=== PATIENT | male | born 1955 | race African-American/Black ===

== ENCOUNTER 2016-11-27 02:23 | Emergency (ER) | payer MEDICAID ==
[~2016-11-27] VITALS: Ht 182.9 cm; Wt 68.0 kg
[2016-11-27 12:28] VITALS: BP 148/92
== END 2016-11-27 16:57 | disposition left against medical advice (07) ==
LOC: ER 02:53
DX: M17.0 Bilateral primary osteoarthritis of knee (principal)
CPT/HCPCS: 99283

== ENCOUNTER 2020-03-19 10:33 | Inpatient (IN) | payer MEDICARE, MEDICAID ==
[~2020-03-19] VITALS: Ht 172.7 cm; Wt 48.5 kg
[2020-03-19 12:07] LABS: BASOPHILS % 0.1 % (0.0-2.0); HEMOGLOBIN. 13.8 g/dL (14.0-18.0); LYMPHOCYTES % 10.2 % (20.0-50.0); MEAN CORPUSCULAR HEMOGLOBIN 30.5 pg (28.0-32.0); MEAN CORPUSCULAR VOLUME 92.8 fL (80.0-94.0); MEAN PLATELET VOLUME 9.5 fl (7.4-10.4); MONOCYTES % 5.1 % (2.0-8.0); NEUTROPHILS % 84.6 % (40.0-76.0); PLATELET 226 x1000/uL (130-400); RED BLOOD CELL COUNT 4.53 mill/uL (4.7-6.1); RED CELL DISTRIBUTION WIDTH 17.3 % (11.6-14.6)
[2020-03-19 12:13] LABS: CHLORIDE 104 mEq/L (98-107)
[2020-03-19 12:20] LABS: ETHANOL BLOOD < 10 mg/dL
[2020-03-19] MEDS ORDERED: AMPICILLIN SOD/SULBACTAM NA 3 G in SODIUM CHLORIDE 0.9% 100 ML IV SCH (14:30)
[2020-03-19] MEDS ORDERED: POTASSIUM CHLORIDE 20MEQ TABLET SR PO ONE (15:00)
[2020-03-19 16:40] LABS: CLARITY URINE CLOUDY (CLEAR); COLOR URINE DARK YELLOW (YELLOW); KETONES URINE NEGATIVE (NEGATIVE); LEUKOCYTE ESTERASE URINE 3+ (NEGATIVE); NITRITE URINE NEGATIVE (NEGATIVE); OCCULT BLOOD URINE 1+ (NEGATIVE); PH URINE 5.5 (4.5-8.0); PROTEIN URINE 2+ (NEGATIVE); SPECIFIC GRAVITY URINE 1.021 (1.005-1.030); UROBILINOGEN URINE >8.0 E.U./dL (0.2-1.0)
[2020-03-19 16:54] LABS: *AMPHETAMINES SCREEN URINE NEGATIVE (NEGATIVE)
[2020-03-19 16:55] LABS: *BARBITURATES SCREEN URINE NEGATIVE (NEGATIVE); *BENZODIAZEPINES SCREEN URINE NEGATIVE (NEGATIVE); *COCAINE SCREEN URINE PRESUMTIVE POSITIVE (NEGATIVE); METHADONE URINE SCREEN NEGATIVE (NEGATIVE); OPIATES URINE SCREEN NEGATIVE (NEGATIVE); PHENCYCLIDINE URINE SCREEN NEGATIVE (NEGATIVE)
[2020-03-19 16:56] LABS: CANNABINOID URINE SCREEN PRESUMTIVE POSITIVE (NEGATIVE)
[2020-03-19] MEDS ORDERED: CLONIDINE 0.1MG TABLET PO PRN (19:15)
[2020-03-19] MEDS ORDERED: GUAIFENESIN 200MG/10ML SUGAR FREE UDC PO PRN (19:15)
[2020-03-19] MEDS ORDERED: ONDANSETRON HCL 4MG/2ML INJ IV PRN (19:15)
[2020-03-19] MEDS ORDERED: DOCUSATE SODIUM 100MG CAPSULE PO PRN (19:15)
[2020-03-19] MEDS ORDERED: HYDROCODONE/ACETAMINOPHEN 5/325MG TABLET PO PRN (19:15)
[2020-03-19] MEDS ORDERED: MAGNESIUM/ALUMINUM HYDROXIDE/SIMETHICONE 30ML UDC PO PRN (19:15)
[2020-03-19] MEDS ORDERED: PIPERACILLIN/TAZ 3.375G PREMIX 50 ML IV SCH (20:00)
[2020-03-19] MEDS ORDERED: KCL 10MEQ/50ML PREMIX 50 ML IV ONE (20:00)
[2020-03-19] MEDS ORDERED: VANCOMYCIN 1250MG in DEXTROSE 5% WATER 250ML IV SCH (21:00)
[2020-03-19 22:00] VITALS: BP 132/76
[2020-03-19] MEDS ORDERED: DEXTROSE 50% WATER 50ML SYRINGE IV PRN (22:30)
[2020-03-19] MEDS: SODIUM CHLORIDE 0.45% 1,000 ML IV SCH (22:36)
[2020-03-19] MEDS: ENOXAPARIN 40MG/0.4ML SYR SUBCUT SCH (22:47)
[2020-03-19 23:12] VITALS: BP 132/76
[2020-03-19] MEDS: PIPERACILLIN/TAZOBACTAM 3.375 G in DEXT 5% WATER 100 ML IV SCH (23:49)
[2020-03-20] VITALS: BP 115/78
[2020-03-20] MEDS: BLOOD SUGAR DIAGNOSTIC STRIP TEST SCH ×4 (07:15→21:00)
[2020-03-20] MEDS: INSULIN LISPRO 100 UNITS/ML SUBCUT SCH ×4 (07:50→21:00)
[2020-03-20 08:00] VITALS: BP 120/79
[2020-03-20] MEDS: SODIUM CHLORIDE 0.45% 1,000 ML IV SCH (08:35)
[2020-03-20] MEDS: VANCOMYCIN 1 G PREMIX 200 ML IV SCH ×2 (09:00→12:27)
[2020-03-20] MEDS: AMLODIPINE 10MG TABLET PO SCH (09:52)
[2020-03-20] MEDS: PIPERACILLIN/TAZOBACTAM 3.375 G in DEXT 5% WATER 100 ML IV SCH ×2 (10:00→17:27)
[2020-03-20 12:00] VITALS: BP 112/57
[2020-03-20 16:00] VITALS: BP 112/65
[2020-03-20 20:00] VITALS: BP 145/73
[2020-03-20] MEDS: VANCOMYCIN 750 MG PREMIX 150 ML IV SCH (20:58)
[2020-03-20] MEDS: ENOXAPARIN 40MG/0.4ML SYR SUBCUT SCH (20:58)
[2020-03-21] VITALS: BP 115/49
[2020-03-21] MEDS: PIPERACILLIN/TAZOBACTAM 3.375 G in DEXT 5% WATER 100 ML IV SCH ×2 (00:26→08:26)
[2020-03-21] MEDS: SODIUM CHLORIDE 0.45% 1,000 ML IV SCH ×2 (00:27→11:15)
[2020-03-21 04:00] VITALS: BP 125/72
[2020-03-21] MEDS: INSULIN LISPRO 100 UNITS/ML SUBCUT SCH ×4 (07:43→20:03)
[2020-03-21] MEDS: BLOOD SUGAR DIAGNOSTIC STRIP TEST SCH ×4 (07:43→20:03)
[2020-03-21 07:45] VITALS: BP 152/90
[2020-03-21] MEDS: AMLODIPINE 10MG TABLET PO SCH (08:27)
[2020-03-21] MEDS: VANCOMYCIN 1 G PREMIX 200 ML IV SCH (09:00)
[2020-03-21] MEDS: VANCOMYCIN 750 MG PREMIX 150 ML IV SCH (09:55)
[2020-03-21 11:13] VITALS: BP 123/58
[2020-03-21 15:11] VITALS: BP 118/62
[2020-03-21] MEDS ORDERED: CEFTRIAXONE 1 G PREMIX 50 ML IV SCH (15:45)
[2020-03-21] MEDS: CEFTRIAXONE 1,000 MG in DEXTROSE 5% WATER 50 ML IV SCH (17:39)
[2020-03-21] MEDS: ENOXAPARIN 40MG/0.4ML SYR SUBCUT SCH (19:57)
[2020-03-21 20:00] VITALS: BP 111/65
[2020-03-22] VITALS: BP 114/77
[2020-03-22 04:00] VITALS: BP 114/96
[2020-03-22] MEDS: SODIUM CHLORIDE 0.45% 1,000 ML IV SCH ×2 (05:25→15:06)
[2020-03-22] MEDS: BLOOD SUGAR DIAGNOSTIC STRIP TEST SCH ×4 (07:57→20:27)
[2020-03-22 08:01] VITALS: BP 132/66
[2020-03-22] MEDS: INSULIN LISPRO 100 UNITS/ML SUBCUT SCH ×4 (08:24→20:32)
[2020-03-22] MEDS: AMLODIPINE 10MG TABLET PO SCH (08:26)
[2020-03-22 11:52] VITALS: BP 135/70
[2020-03-22] MEDS: ENOXAPARIN 40MG/0.4ML SYR SUBCUT SCH (16:00)
[2020-03-22 16:25] VITALS: BP 123/70
[2020-03-22] MEDS: CEFTRIAXONE 1,000 MG in DEXTROSE 5% WATER 50 ML IV SCH (17:45)
[2020-03-22 20:00] VITALS: BP 138/86
[2020-03-23] VITALS (7 sets, daily range): BP systolic 116–142; BP diastolic 65–99
[2020-03-23] MEDS: SODIUM CHLORIDE 0.45% 1,000 ML IV SCH ×2 (03:15→16:00)
[2020-03-23] MEDS: BLOOD SUGAR DIAGNOSTIC STRIP TEST SCH ×2 (06:52→12:20)
[2020-03-23] MEDS: INSULIN LISPRO 100 UNITS/ML SUBCUT SCH ×2 (07:50→12:50)
[2020-03-23] MEDS: ENOXAPARIN 40MG/0.4ML SYR SUBCUT SCH (09:00)
[2020-03-23] MEDS: AMLODIPINE 10MG TABLET PO SCH (09:00)
[2020-03-24] MEDS ORDERED: ENOXAPARIN 30MG/0.3ML SYR SUBCUT SCH (09:00)
== END 2020-03-23 20:20 | DRG 720 ==
LOC: ER 10:33 → 6WST 18:48 → EDBEDREQ 18:56 → EDBEDREQSVC 18:56 → ENRESERV 21:08
PROVIDERS: ADMIT Hospitalist; ATTEND Hospitalist
DX: A41.51 Sepsis due to Escherichia coli [E. coli] (principal); N39.0 Urinary tract infection, site not specified; E43 Unspecified severe protein-calorie malnutrition; L89.159 Pressure ulcer of sacral region, unspecified stage; I10 Essential (primary) hypertension; R74.01 Elevation of levels of liver transaminase levels; L89.319 Pressure ulcer of right buttock, unspecified stage; L89.329 Pressure ulcer of left buttock, unspecified stage; L89.213 Pressure ulcer of right hip, stage 3; Z20.828 Contact with and (suspected) exposure to other viral communicable diseases; L89.220 Pressure ulcer of left hip, unstageable; E11.51 Type 2 diabetes mellitus with diabetic peripheral angiopathy without gangrene; Z89.612 Acquired absence of left leg above knee; Z59.0 Homelessness; Z99.3 Dependence on wheelchair; Z68.1 Body mass index [BMI] 19.9 or less, adult; Z91.19 Patient's noncompliance with other medical treatment and regimen; F19.10 Other psychoactive substance abuse, uncomplicated
CPT/HCPCS: 36415; 71045; 80053; 80305; 80320; 81003; 82962; 83605; 85025; 87077; 87186; 87426; 93005; 93970; 96365; 99285; J0295; J0696; J1650; J1815; J2543; J3370; J3480; J7050; J7060; G0480

== ENCOUNTER 2021-07-18 10:30 | Inpatient (IN) | payer MEDICARE, MEDICAID ==
[~2021-07-18] VITALS: Ht 165.1 cm; Wt 62.6 kg
[~2021-07-18 10:30] MED LIST: ABAC1TAB14 PO
[2021-07-18 12:36] LABS: HEMATOCRIT. 39.4 % (42.0-52.0); HEMOGLOBIN. 13.2 g/dL (14.0-18.0); MEAN CORPUSCULAR HEMOGLOBIN 29.3 pg (28.0-32.0); MEAN CORPUSCULAR VOLUME 87.3 fL (80.0-94.0); MEAN PLATELET VOLUME 8.6 fl (7.4-10.4); PLATELET 238 x1000/uL (130-400); RED BLOOD CELL COUNT 4.52 mill/uL (4.7-6.1); RED CELL DISTRIBUTION WIDTH 16.9 % (11.6-14.6)
[2021-07-18] MEDS ORDERED: VANCOMYCIN 1G PREMIX 200 ML IV ONE (12:45)
[2021-07-18] MEDS ORDERED: PIPERACILLIN/TAZ 3.375G PREMIX 50 ML IV ONE (12:45)
[2021-07-18] MEDS ORDERED: SODIUM CHLORIDE 0.9% 1,000 ML IV ONE (12:45)
[2021-07-18 12:47] LABS: CHLORIDE 108 mEq/L (98-107)
[2021-07-18 12:57] LABS: ETHANOL BLOOD < 10 mg/dL
[2021-07-18 13:22] LABS: PLATELET ESTIMATE NORMAL
[2021-07-18] MEDS ORDERED: SODIUM CHLORIDE 0.9% 1000ML BAG (SEPSIS BOLUS) IV ONE (15:30)
[2021-07-18] MEDS ORDERED: NITROGLYCERIN 0.4MG TABLET SL SL PRN (18:15)
[2021-07-18] MEDS ORDERED: DEXTROSE 50% WATER 50ML SYRINGE IV PRN (18:15)
[2021-07-18] MEDS ORDERED: ONDANSETRON HCL 4MG/2ML INJ IV PRN (18:15)
[2021-07-18] MEDS ORDERED: KETOROLAC 15MG/ML VIAL IV PRN (18:15)
[2021-07-18] MEDS ORDERED: MAGNESIUM/ALUMINUM HYDROXIDE/SIMETHICONE 30ML UDC PO PRN (18:15)
[2021-07-18] MEDS ORDERED: GUAIFENESIN 200MG/10ML SUGAR FREE UDC PO PRN (18:15)
[2021-07-18] MEDS ORDERED: DOCUSATE SODIUM 100MG CAPSULE PO PRN (18:15)
[2021-07-18] MEDS: SODIUM CHLORIDE 0.9% 1,000 ML IV SCH (18:15)
[2021-07-18] MEDS ORDERED: IPRATROPIUM/ALBUTEROL 0.5-3(2.5)MG/3ML NEB NEB PRN (18:15)
[2021-07-18] MEDS ORDERED: CLONIDINE 0.1MG TABLET PO PRN (18:15)
[2021-07-18] MEDS ORDERED: PIPERACILLIN/TAZ 3.375G PREMIX 50 ML IV SCH (18:15)
[2021-07-18] MEDS ORDERED: ACETAMINOPHEN 325MG TABLET PO PRN (18:15)
[2021-07-18 19:25] VITALS: BP 117/60
[2021-07-18 19:26] LABS: T4 FREE 1.46 ng/dL (0.76-1.46)
[2021-07-18 20:00] VITALS: BP 97/65
[2021-07-18] MEDS ORDERED: NA PHOS,M-B/NA PHOS,DI-BA ENEMA 118ML PR NR (20:45)
[2021-07-18] MEDS ORDERED: ZOLPIDEM TARTRATE 5MG TABLET PO PRN (21:00)
[2021-07-18] MEDS: INSULIN LISPRO 100 UNITS/ML SUBCUT SCH (21:00)
[2021-07-18] MEDS ORDERED: ENOXAPARIN 40MG/0.4ML SYR SUBCUT SCH (21:00)
[2021-07-18] MEDS: BLOOD SUGAR DIAGNOSTIC STRIP TEST SCH (21:00)
[2021-07-18] MEDS ORDERED: VANCOMYCIN 1GM PMX (XELLIA) 200 ML IV SCH (23:00)
[2021-07-18] MEDS: ASCORBIC ACID 500 MG TABLET PO SCH (23:04)
[2021-07-18] MEDS: FAMOTIDINE 20MG TABLET PO SCH (23:04)
[2021-07-19] MEDS: ACETAMINOPHEN 325MG TABLET PO PRN ×2 (03:20→17:39)
[2021-07-19] MEDS: LACTULOSE 20G/30ML UDC PO SCH ×4 (03:20→17:21)
[2021-07-19 04:00] VITALS: BP 121/85
[2021-07-19] MEDS: SODIUM CHLORIDE 0.9% 1,000 ML IV SCH ×2 (04:15→16:21)
[2021-07-19] MEDS: PIPERACILLIN/TAZOBACTAM 3.375G in DEXT 5% WATER 50ML IV SCH ×4 (04:37→22:25)
[2021-07-19 06:57] LABS: CHLORIDE 111 mEq/L (98-107)
[2021-07-19 06:59] LABS: HEMATOCRIT. 35.9 % (42.0-52.0); HEMOGLOBIN. 12.2 g/dL (14.0-18.0); MEAN CORPUSCULAR HEMOGLOBIN 29.6 pg (28.0-32.0); MEAN CORPUSCULAR VOLUME 87.2 fL (80.0-94.0); MEAN PLATELET VOLUME 9.1 fl (7.4-10.4); PLATELET 228 x1000/uL (130-400); RED BLOOD CELL COUNT 4.12 mill/uL (4.7-6.1)
[2021-07-19 07:00] LABS: CLARITY URINE CLOUDY (CLEAR); COLOR URINE YELLOW (YELLOW); KETONES URINE TRACE (NEGATIVE); LEUKOCYTE ESTERASE URINE 3+ (NEGATIVE); NITRITE URINE POSITIVE (NEGATIVE); OCCULT BLOOD URINE 1+ (NEGATIVE); PROTEIN URINE 1+ (NEGATIVE); SPECIFIC GRAVITY URINE 1.021 (1.005-1.030)
[2021-07-19 07:08] LABS: CREATINE KINASE 456 IU/L (39-308); CREATINE KINASE MB FRACTION 4.5 ng/mL (0.5-3.6)
[2021-07-19] MEDS: BLOOD SUGAR DIAGNOSTIC STRIP TEST SCH ×4 (07:10→21:00)
[2021-07-19 07:13] LABS: *AMPHETAMINES SCREEN URINE NEGATIVE (NEGATIVE); *BARBITURATES SCREEN URINE NEGATIVE (NEGATIVE); *BENZODIAZEPINES SCREEN URINE NEGATIVE (NEGATIVE); *COCAINE SCREEN URINE PRESUMTIVE POSITIVE (NEGATIVE); CANNABINOID URINE SCREEN PRESUMTIVE POSITIVE (NEGATIVE); METHADONE URINE SCREEN NEGATIVE (NEGATIVE); OPIATES URINE SCREEN NEGATIVE (NEGATIVE); PHENCYCLIDINE URINE SCREEN NEGATIVE (NEGATIVE)
[2021-07-19] MEDS: INSULIN LISPRO 100 UNITS/ML SUBCUT SCH ×4 (07:40→21:00)
[2021-07-19 08:00] VITALS: BP 125/78
[2021-07-19] MEDS ORDERED: ENOXAPARIN 30MG/0.3ML SYR SUBCUT SCH (09:00)
[2021-07-19] MEDS: ASCORBIC ACID 500 MG TABLET PO SCH ×2 (09:33→22:25)
[2021-07-19] MEDS: ASPIRIN 325MG EC TABLET PO SCH (09:33)
[2021-07-19] MEDS: ENOXAPARIN 40MG/0.4ML SYR SUBCUT SCH (09:33)
[2021-07-19] MEDS: FAMOTIDINE 20MG TABLET PO SCH ×2 (09:34→22:25)
[2021-07-19] MEDS: ZINC SULFATE 220 MG ( 50 ) CAPSULE PO SCH (09:34)
[2021-07-19 12:00] VITALS: BP 116/50
[2021-07-19 13:05] LABS: PLATELET ESTIMATE NORMAL
[2021-07-19] MEDS ORDERED: LIDOCAINE HCL 2% JELLY 5ML TOP SCH (14:00)
[2021-07-19] MEDS ORDERED: LIDOCAINE HCL/EPINEPHRINE 1%-EPI 1:100,000 20 ML VIAL INFIL SCH (14:00)
[2021-07-19] MEDS ORDERED: INFLUENZA VACCINE 05/PF 0.5 ML SYRINGE IM ONE (15:00)
[2021-07-19 16:00] VITALS: BP 130/52
[2021-07-19] MEDS: VANCOMYCIN 750MG PREMIX 150 ML IV SCH (17:26)
[2021-07-19 20:00] VITALS: BP 129/69
[2021-07-20] VITALS: BP 139/74
[2021-07-20] MEDS: SODIUM CHLORIDE 0.9% 1,000 ML IV SCH ×3 (00:45→20:52)
[2021-07-20] MEDS: LACTULOSE 20G/30ML UDC PO SCH ×4 (00:45→18:47)
[2021-07-20 03:21] LABS: CHLORIDE 113 mEq/L (98-107)
[2021-07-20 04:00] VITALS: BP 149/75
[2021-07-20] MEDS: PIPERACILLIN/TAZOBACTAM 3.375G in DEXT 5% WATER 50ML IV SCH ×2 (07:02→16:36)
[2021-07-20] MEDS: INSULIN LISPRO 100 UNITS/ML SUBCUT SCH ×4 (07:04→20:19)
[2021-07-20] MEDS: BLOOD SUGAR DIAGNOSTIC STRIP TEST SCH ×4 (07:04→20:18)
[2021-07-20] MEDS: VANCOMYCIN 750MG PREMIX 150 ML IV SCH ×2 (07:10→18:49)
[2021-07-20 08:00] VITALS: BP 133/89
[2021-07-20] MEDS: ASPIRIN 325MG EC TABLET PO SCH (09:00)
[2021-07-20] MEDS: FAMOTIDINE 20MG TABLET PO SCH ×2 (09:00→20:52)
[2021-07-20] MEDS: ZINC SULFATE 220 MG ( 50 ) CAPSULE PO SCH (09:00)
[2021-07-20] MEDS: ASCORBIC ACID 500 MG TABLET PO SCH ×2 (09:00→20:52)
[2021-07-20] MEDS: ENOXAPARIN 40MG/0.4ML SYR SUBCUT SCH (09:00)
[2021-07-20 09:06] LABS: ABSOLUTE EOSINOPHILS 0.1 x10E3/uL (0.0-0.4); ABSOLUTE LYMPHOCYTES 2.5 x10E3/uL (0.7-3.1); ABSOLUTE MONOCYTES 0.8 x10E3/uL (0.1-0.9); ABSOLUTE NEUTROPHILS 2.6 x10E3/uL (1.4-7.0); BASOPHILS 1 % (Not Estab.); HEMATOCRIT 39.3 % (37.5-51.0); HEMOGLOBIN 12.9 g/dL (13.0-17.7); IMMATURE GRANULOCYTES 1 % (Not Estab.); LYMPHOCYTES 42 % (Not Estab.); MEAN CORPUSCULAR HEMOGLOBIN 28.7 pg (26.6-33.0); MEAN CORPUSCULAR HGB CONC. 32.8 g/dL (31.5-35.7); MEAN CORPUSCULAR VOLUME 88 fL (79-97); MONOCYTES 13 % (Not Estab.); NEUTROPHILS 42 % (Not Estab.); PLATELETS 244 x10E3/uL (150-450); RBC 4.49 x10E6/uL (4.14-5.80); RED CELL DISTRIBUTION WIDTH 15.1 % (11.6-15.4); WBC 6.1 x10E3/uL (3.4-10.8)
[2021-07-20 12:00] VITALS: BP 130/76
[2021-07-20 13:06] LABS: % CD 3 POS. LYMPHOCYTES 86.7 % (57.5-86.2); % CD 4 POS. LYMPHOCYTES 11.1 % (30.8-58.5); % CD 8 POS. LYMPH 76.1 % (12.0-35.5); ABSOLUTE CD 3 2168 /uL (622-2402); ABSOLUTE CD 4 HELPER 278 /uL (359-1519); ABSOLUTE CD 8 SUPPRESSOR 1903 /uL (109-897); CD4/CD8 RATIO 0.15 (0.92-3.72)
[2021-07-20 16:08] VITALS: BP 129/70
[2021-07-20 20:00] VITALS: BP 135/75
[2021-07-21] VITALS: BP 135/81
[2021-07-21] MEDS: LACTULOSE 20G/30ML UDC PO SCH ×4 (03:20→17:07)
[2021-07-21] MEDS: PIPERACILLIN/TAZOBACTAM 3.375G in DEXT 5% WATER 50ML IV SCH ×4 (03:20→21:31)
[2021-07-21 04:00] VITALS: BP 131/69
[2021-07-21] MEDS: SODIUM CHLORIDE 0.9% 1,000 ML IV SCH ×2 (06:37→17:11)
[2021-07-21] MEDS: VANCOMYCIN 750MG PREMIX 150 ML IV SCH ×2 (06:38→17:10)
[2021-07-21] MEDS: BLOOD SUGAR DIAGNOSTIC STRIP TEST SCH ×4 (07:09→21:30)
[2021-07-21] MEDS: INSULIN LISPRO 100 UNITS/ML SUBCUT SCH ×4 (07:36→21:00)
[2021-07-21 08:00] VITALS: BP 133/80
[2021-07-21] MEDS: FAMOTIDINE 20MG TABLET PO SCH ×2 (09:00→20:41)
[2021-07-21] MEDS: ENOXAPARIN 40MG/0.4ML SYR SUBCUT SCH (09:00)
[2021-07-21] MEDS: ASPIRIN 325MG EC TABLET PO SCH (09:00)
[2021-07-21] MEDS: ASCORBIC ACID 500 MG TABLET PO SCH ×2 (09:18→20:41)
[2021-07-21] MEDS: ZINC SULFATE 220 MG ( 50 ) CAPSULE PO SCH (09:18)
[2021-07-21 12:06] VITALS: BP 134/71
[2021-07-21 16:00] VITALS: BP 138/85
[2021-07-21 20:00] VITALS: BP 129/70
[2021-07-22] VITALS: BP_SYST 130; BP_SYST 143; BP_DIAS 71; BP_DIAS 87
[2021-07-22] MEDS: LACTULOSE 20G/30ML UDC PO SCH ×4 (00:14→22:14)
[2021-07-22 04:00] VITALS: BP 136/86
[2021-07-22] MEDS: PIPERACILLIN/TAZOBACTAM 3.375G in DEXT 5% WATER 50ML IV SCH ×2 (05:00→22:07)
[2021-07-22] MEDS: VANCOMYCIN 750MG PREMIX 150 ML IV SCH ×2 (05:01→18:27)
[2021-07-22] MEDS: SODIUM CHLORIDE 0.9% 1,000 ML IV SCH ×3 (05:02→22:10)
[2021-07-22] MEDS: BLOOD SUGAR DIAGNOSTIC STRIP TEST SCH ×4 (05:02→21:00)
[2021-07-22] MEDS: INSULIN LISPRO 100 UNITS/ML SUBCUT SCH ×4 (07:40→21:00)
[2021-07-22 08:00] VITALS: BP 131/74
[2021-07-22] MEDS: ZINC SULFATE 220 MG ( 50 ) CAPSULE PO SCH (10:12)
[2021-07-22] MEDS: ASPIRIN 325MG EC TABLET PO SCH (10:12)
[2021-07-22] MEDS: ASCORBIC ACID 500 MG TABLET PO SCH ×2 (10:12→22:14)
[2021-07-22] MEDS: FAMOTIDINE 20MG TABLET PO SCH ×2 (10:12→22:14)
[2021-07-22] MEDS: ENOXAPARIN 40MG/0.4ML SYR SUBCUT SCH (10:12)
[2021-07-22] MEDS: ACETAMINOPHEN 325MG TABLET PO PRN (10:12)
[2021-07-22 12:00] VITALS: BP 127/77
[2021-07-22] MEDS ORDERED: LIDOCAINE HCL/EPINEPHRINE 1%-EPI 1:100,000 20 ML VIAL INFIL SCH (13:00)
[2021-07-22] MEDS ORDERED: LIDOCAINE HCL 2% JELLY 5ML TOP SCH (13:00)
[2021-07-22 16:00] VITALS: BP 136/82
[2021-07-22] MEDS: MEROPENEM 1000MG in NORMAL SALINE 100ML IV SCH (18:27)
[2021-07-22 20:00] VITALS: BP 132/81
[2021-07-23] VITALS: BP 143/84
[2021-07-23] MEDS: MEROPENEM 1000MG in NORMAL SALINE 100ML IV SCH ×3 (03:03→16:33)
[2021-07-23 03:30] LABS: CHLORIDE 110 mEq/L (98-107)
[2021-07-23 04:00] VITALS: BP 136/90
[2021-07-23] MEDS: LACTULOSE 20G/30ML UDC PO SCH ×3 (05:18→18:00)
[2021-07-23] MEDS: VANCOMYCIN 750MG PREMIX 150 ML IV SCH ×2 (05:18→06:00)
[2021-07-23] MEDS: INSULIN LISPRO 100 UNITS/ML SUBCUT SCH ×4 (06:54→21:00)
[2021-07-23] MEDS: BLOOD SUGAR DIAGNOSTIC STRIP TEST SCH ×4 (06:54→21:09)
[2021-07-23 08:00] VITALS: BP 158/91
[2021-07-23] MEDS: ASCORBIC ACID 500 MG TABLET PO SCH ×2 (08:47→21:25)
[2021-07-23] MEDS: ASPIRIN 325MG EC TABLET PO SCH (08:47)
[2021-07-23] MEDS: FAMOTIDINE 20MG TABLET PO SCH ×2 (08:47→21:23)
[2021-07-23] MEDS: ZINC SULFATE 220 MG ( 50 ) CAPSULE PO SCH (08:47)
[2021-07-23] MEDS: ENOXAPARIN 40MG/0.4ML SYR SUBCUT SCH (08:47)
[2021-07-23] MEDS: SODIUM CHLORIDE 0.9% 1,000 ML IV SCH ×2 (08:48→18:15)
[2021-07-23 12:00] VITALS: BP 126/83
[2021-07-23] MEDS: VANCOMYCIN 1GM PMX (XELLIA) 200 ML IV SCH (13:03)
[2021-07-23 16:00] VITALS: BP 150/66
[2021-07-23 20:00] VITALS: BP 148/67
[2021-07-24] VITALS: BP 133/76
[2021-07-24] MEDS: VANCOMYCIN 750MG PREMIX 150 ML IV SCH (01:13)
[2021-07-24] MEDS: LACTULOSE 20G/30ML UDC PO SCH ×4 (01:13→18:00)
[2021-07-24] MEDS: ACETAMINOPHEN 325MG TABLET PO PRN (01:13)
[2021-07-24] MEDS: MEROPENEM 1000MG in NORMAL SALINE 100ML IV SCH ×3 (01:23→18:11)
[2021-07-24 04:00] VITALS: BP 149/94
[2021-07-24] MEDS: BLOOD SUGAR DIAGNOSTIC STRIP TEST SCH ×4 (05:56→20:00)
[2021-07-24] MEDS: INSULIN LISPRO 100 UNITS/ML SUBCUT SCH ×5 (05:56→20:11)
[2021-07-24] MEDS: VANCOMYCIN 1GM PMX (XELLIA) 200 ML IV SCH (06:15)
[2021-07-24] MEDS: SODIUM CHLORIDE 0.9% 1,000 ML IV SCH ×2 (06:18→14:15)
[2021-07-24 07:40] LABS: HEMATOCRIT. 36.5 % (42.0-52.0); HEMOGLOBIN. 12.1 g/dL (14.0-18.0); MEAN CORPUSCULAR HEMOGLOBIN 29.1 pg (28.0-32.0); MEAN CORPUSCULAR VOLUME 87.7 fL (80.0-94.0); MEAN PLATELET VOLUME 9.3 fl (7.4-10.4); PLATELET 264 x1000/uL (130-400); RED BLOOD CELL COUNT 4.16 mill/uL (4.7-6.1); RED CELL DISTRIBUTION WIDTH 16.8 % (11.6-14.6)
[2021-07-24 07:44] LABS: CHLORIDE 112 mEq/L (98-107)
[2021-07-24 07:56] LABS: CREATINE KINASE 62 IU/L (39-308)
[2021-07-24 08:00] VITALS: BP 104/62
[2021-07-24] MEDS: ENOXAPARIN 40MG/0.4ML SYR SUBCUT SCH (08:44)
[2021-07-24] MEDS: ASCORBIC ACID 500 MG TABLET PO SCH ×2 (08:44→20:09)
[2021-07-24] MEDS: FAMOTIDINE 20MG TABLET PO SCH ×2 (08:45→20:09)
[2021-07-24] MEDS: ASPIRIN 325MG EC TABLET PO SCH (08:45)
[2021-07-24] MEDS: ZINC SULFATE 220 MG ( 50 ) CAPSULE PO SCH (08:45)
[2021-07-24 12:00] VITALS: BP 117/76
[2021-07-24 16:00] VITALS: BP 123/82
[2021-07-24 20:00] VITALS: BP 112/85
[2021-07-24 21:26] LABS: PLATELET ESTIMATE NORMAL
[2021-07-25] VITALS: BP 130/70
[2021-07-25] MEDS: MEROPENEM 1000MG in NORMAL SALINE 100ML IV SCH ×3 (01:33→17:41)
[2021-07-25] MEDS: SODIUM CHLORIDE 0.9% 1,000 ML IV SCH ×2 (01:34→10:29)
[2021-07-25] MEDS: LACTULOSE 20G/30ML UDC PO SCH ×4 (01:34→18:00)
[2021-07-25] MEDS: VANCOMYCIN 1GM PMX (XELLIA) 200 ML IV SCH (01:34)
[2021-07-25 04:00] VITALS: BP 125/68
[2021-07-25] MEDS: BLOOD SUGAR DIAGNOSTIC STRIP TEST SCH ×3 (05:34→17:25)
[2021-07-25] MEDS: INSULIN LISPRO 100 UNITS/ML SUBCUT SCH ×3 (05:37→17:26)
[2021-07-25 08:00] VITALS: BP 136/93
[2021-07-25] MEDS: ASPIRIN 325MG EC TABLET PO SCH (08:45)
[2021-07-25] MEDS: FAMOTIDINE 20MG TABLET PO SCH (08:45)
[2021-07-25] MEDS: ZINC SULFATE 220 MG ( 50 ) CAPSULE PO SCH (08:45)
[2021-07-25] MEDS: ASCORBIC ACID 500 MG TABLET PO SCH (08:45)
[2021-07-25] MEDS: ENOXAPARIN 40MG/0.4ML SYR SUBCUT SCH (08:46)
[2021-07-25 11:33] VITALS: BP 118/75
[2021-07-25] MEDS: ACETAMINOPHEN 325MG TABLET PO PRN (11:49)
[2021-07-25 11:57] LABS: CHLORIDE 109 mEq/L (98-107)
[2021-07-25] MEDS ORDERED: LIDOCAINE HCL/PF 1% 10 MG/ML 5ML VIAL ONE (14:21)
[2021-07-25 16:00] VITALS: BP 119/63
[2021-07-25 19:34] VITALS: BP 112/77
[2021-07-25] MEDS ORDERED: [UNRECOGNIZED DRUG - CODE] IM (20:03)
== END 2021-07-25 20:45 | DRG 720 ==
LOC: ER 11:07 → EDBEDREQ 12:57 → 8WST 15:35 → EDBEDREQTM 15:54 → EDBEDREQ 15:54 → ENRESERV 16:08 → 8WST 17:35
PROVIDERS: ADMIT Internal Medicine; ATTEND Internal Medicine
PROC: 0JBM0ZZ Excision of Left Upper Leg Subcutaneous Tissue and Fascia, Open Approach (ICD-10-PCS; 2021-07-22)
PROC: 0JBL0ZZ Excision of Right Upper Leg Subcutaneous Tissue and Fascia, Open Approach (ICD-10-PCS; 2021-07-22)
PROC: 02HV33Z Insertion of Infusion Device into Superior Vena Cava, Percutaneous Approach (ICD-10-PCS; principal; 2021-07-25)
PROC: B5181ZA Fluoroscopy of Superior Vena Cava using Low Osmolar Contrast, Guidance (ICD-10-PCS; 2021-07-25)
PROC: B548ZZA Ultrasonography of Superior Vena Cava, Guidance (ICD-10-PCS; 2021-07-25)
DX: A40.1 Sepsis due to streptococcus, group B (principal); J96.01 Acute respiratory failure with hypoxia; N17.0 Acute kidney failure with tubular necrosis; R65.20 Severe sepsis without septic shock; E43 Unspecified severe protein-calorie malnutrition; J18.9 Pneumonia, unspecified organism; G92.9 Unspecified toxic encephalopathy; E87.1 Hypo-osmolality and hyponatremia; L89.213 Pressure ulcer of right hip, stage 3; L89.223 Pressure ulcer of left hip, stage 3; N39.0 Urinary tract infection, site not specified; I11.0 Hypertensive heart disease with heart failure; L89.159 Pressure ulcer of sacral region, unspecified stage; Z20.822 Contact with and (suspected) exposure to COVID-19; K56.41 Fecal impaction; M62.82 Rhabdomyolysis; E11.9 Type 2 diabetes mellitus without complications; L03.115 Cellulitis of right lower limb; R74.01 Elevation of levels of liver transaminase levels; B96.20 Unspecified Escherichia coli [E. coli] as the cause of diseases classified elsewhere; I50.9 Heart failure, unspecified; Z16.12 Extended spectrum beta lactamase (ESBL) resistance; Z79.4 Long term (current) use of insulin; Z91.14 Patient's other noncompliance with medication regimen; Z68.23 Body mass index [BMI] 23.0-23.9, adult; Z21 Asymptomatic human immunodeficiency virus [HIV] infection status; Z89.612 Acquired absence of left leg above knee; Z71.51 Drug abuse counseling and surveillance of drug abuser; Z85.51 Personal history of malignant neoplasm of bladder; F14.10 Cocaine abuse, uncomplicated; F12.10 Cannabis abuse, uncomplicated
CPT/HCPCS: 36415; 36573; 71045; 74176; 80048; 80053; 80061; 80202; 80305; 80320; 81003; 82040; 82550; 82553; 82607; 82746; 82962; 83036; 83540; 83550; 83605; 83735; 84100; 84134; 84145; 84439; 84443; 84484; 85025; 86359; 86360; 87077; 87186; 87426; 90686; 93005; 93306; 93970; 97162; 97165; 99291; C1725; C1893; J1650; J1815; J1885; J2185; J2543; J3370; J3490; J7030; J7060; G0480